=== PATIENT | female | born 1965 | race Caucasian/White ===

== ENCOUNTER 2016-05-15 16:38 | Emergency (ER) | payer OTHER ==
[~2016-05-15] VITALS: Ht 162.6 cm; Wt 102.1 kg
[~2016-05-15 16:38] MED LIST: ANUSOL HC-HEMOR1 SUP RC; LIDOCAINE VISC100 M2 PO; MICROZIDE12.5 MG PO; NEXIUM 40MG40 MG PO; PERCOCET 325 MG1 TA2 PO
[2016-05-15 17:44] LABS: ABSOLUTE BASOPHIL COUNT 0.1 /CUMM (0.0-0.2); ABSOLUTE EOSINOPHIL COUNT 0.1 /CUMM (0.0-0.7); ABSOLUTE GRANULOCYTE CT 6.7 /CUMM (1.4-6.5); ABSOLUTE MONOCYTE COUNT 0.5 /CUMM (0.10-0.60); BASOPHIL % 0.5 % (0.0-2.0); GRANULOCYTE % 64.8 % (42.2-75.2); HEMATOCRIT 29.7 % (37-47); MEAN CORPUSCULAR HGB 18.7 PG (27.0-31.0); MEAN CORPUSCULAR HGB CONC 30.8 G/DL (33.0-37.0); MEAN CORPUSCULAR VOLUME 60.8 FL (81.0-99.0); MEAN PLATELET VOLUME 7.4 FL (7.4-10.4); PLATELET COUNT 413 /CUMM (130-400); RBC DISTRIBUTION WIDTH 20.4 % (11.5-14.5); RED BLOOD CELL CT 4.88 /CUMM (4.20-5.40); WHITE BLOOD CELL COUNT 10.3 /CUMM (4.8-10.8)
[2016-05-15] MEDS ORDERED: LISINOPRIL20 M1 PO (17:53)
[2016-05-15] MEDS ORDERED: VITAMIN B-121000 MC3 PO (17:54)
[2016-05-15] MEDS ORDERED: FOLIC ACID0.8 M1 PO (17:54)
[2016-05-15] MEDS ORDERED: KRILL OIL500 MG PO (17:54)
[2016-05-15] MEDS ORDERED: BIOTIN800 MCG PO (17:55)
--- NOTE | 2016-05-15 18:09 | ED CARDIAC/CP/PALPITATIONS ---
History of Present Illness General Chief Complaint: Chest Pain Stated Complaint: CHEST PAIN Source: patient, family, old records, Epic Exam Limitations: no limitations Vital Signs & Intake/Output Vital Signs & Intake/Output Vital Signs Date Time Temp Pulse Resp B/P Pulse O2 O2 Flow FiO2 Ox Delivery Rate 05/15 1648 98.3 80 16 127/82 98 Room Air Allergies Coded Allergies: amoxicillin (HIVES 05/15/16) carrot (ANAPHYLAXIS 05/15/16) celery (ANAPHYLAXIS 05/15/16) ciprofloxacin (From CIPRO) (RASH 05/15/16) clarithromycin (From BIAXIN) (RAGING HEADACHE 05/15/16) codeine (PALPITATIONS 05/15/16) ibuprofen (ANAPHYLAXIS 05/15/16) ketorolac (From TORADOL) (GIANT MIGRAINE 05/15/16) Reconcile Medications Biotin (Unknown Strength) TABLET (Unknown Dose) PO DAILY SUPPLEMENT (Reported ) Cyanocobalamin (Vitamin B-12) (Unknown Strength) TABLET (Unknown Dose) PO DAILY SUPPLEMENT (Reported) Esomeprazole (Nexium) 40 MG CAPSULE.DR 1 CAP PO DAILY STOMACH (Reported) Folic Acid (Unknown Strength) CAPSULE (Unknown Dose) PO DAILY SUPPLEMENT ( Reported) Hydrochlorothiazide (Microzide) 12.5 MG CAPSULE 1 CAP PO DAILY HTN (Reported) Krill Oil (Unknown Strength) CAPSULE (Unknown Dose) PO DAILY SUPPLEMENT ( Reported) Lisinopril 20 MG TABLET 1 TAB PO DAILY BP (Reported) Triage Note: PT TO TRIAGE WITH C/O CHEST PAIN TAKEN TO EKG [place] AND CLEARED. PT STATES SHE WENT [place] YESTERDAY AND WAS CLEARED STATES HER ENZYMES WHERE NEGATIVE. PT REPORTS ATE MEATLOAF WITH PORK AND VEAL AND BEGAN TO HAVE PAIN. PT STATES SHE IS FEELING LIKE SHE IS GOING TO VOMIT. Triage Nurses Notes Reviewed? yes Onset: Just prior to arrival Duration: minute(s):, constant, continues in ED Timing: recent history Quality/Severity: severe, tightness Location: central, epigastric Radiation: no radiation Activities at Onset: none Prior Chest Pain/Card Workup: echocardiography, stress test Nitro Today/Relief: no nitro taken today Aspirin Today: no aspirin today Associated Symptoms: abdominal pain, diaphoresis, dizziness, nausea/vomiting, weakness LMP (ages 10-50): unknown : No Patient currently breastfeeds: No HPI: Prior to admission patient had repeated episodes of epigastric substernal chest discomfort described as tight moderate to severe associated with nausea and diaphoresis dizziness. She was seen yesterday at [facility] with similar symptoms with normal EKG and 2 negative troponins. She denies fever chills shortness of breath vomiting diarrhea headache dysuria rash bleeding Past History Travel History Traveled to [place] past 21 day No Medical History Any Pertinent Medical History? see below for history Cardiovascular: hypertension Gastrointestinal: GASTRIC BYPASS Surgical History Surgical History: non-contributory Psychosocial History What is your primary language [place]ian Tobacco Use: Quit >30 days ago ETOH Use: occasional use Illicit Drug Use: denies illicit drug use Family History Hx Contributory? No Review of Systems Review of Systems Constitutional: Reports: see HPI, weakness. EENTM: Reports: no symptoms. Respiratory: Reports: no symptoms. Cardiovascular: Reports: see HPI, chest pain. GI: Reports: see HPI, abdominal pain, nausea. Genitourinary: Reports: no symptoms. Musculoskeletal: Reports: no symptoms. Skin: Reports: no symptoms. Neurological/Psychological: Reports: no symptoms. Hematologic/Endocrine: Reports: no symptoms. Immunologic/Allergic: Reports: no symptoms. All Other Systems: Reviewed and Negative Physical Exam Physical Exam General Appearance: well developed/nourished, alert, awake, anxious, moderate distress, obese Head: atraumatic, normal appearance Eyes: Bilateral: normal appearance, PERRL, EOMI. Ears, Nose, Throat: normal pharynx, normal ENT inspection Neck: normal inspection, supple, full range of motion, no midline tenderness Respiratory: normal breath sounds, chest non-tender, no respiratory distress, quiet respiration, lungs clear Cardiovascular: regular rate/rhythm, normal peripheral pulses, norml femoral pulses equa Peripheral Pulses: 4+ carotid (R), 4+ carotid (L) Gastrointestinal: normal bowel sounds, soft, tenderness (epigastric) Back: normal inspection, normal range of motion Extremities: normal inspection, normal capillary refill, normal range of motion, no edema Neurologic/Psych: no motor/sensory deficits, alert, oriented x 3, normal gait, normal mood/affect, 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 Skin: intact, normal color Lymphatic: no anterior cervical fabrice Core Measures ACS in differential dx? No Severe Sepsis Present: No Septic Shock Present: No Progress Differential Diagnosis: AMI, cholecystitis, pancreatitis, PUD/GERD Plan of Care: Orders Procedure Date/time Status URINALYSIS 05/15 1717 Active TROPONIN LEVEL 05/15 1717 Complete LIPASE 05/15 1717 Complete HUMAN BETA HCG SCREEN 05/15 1717 Complete COMPREHENSIVE METABOLIC PANEL 05/15 1717 Complete CBC WITHOUT DIFFERENTIAL 05/15 1717 Complete EKG 05/15 1639 Active Current Medications Sig/Yvonne Start time Last Medication Dose Stop Time Status Admin Metoclopramide HCl 10 MG ONCE ONE 05/15 173 CAN (Reglan) 05/15 173 Laboratory Tests 05/15/16 173: Anion Gap 11, Estimated GFR > 60, BUN/Creatinine Ratio 20.0, Glucose 86, Calcium 8.7, Total Bilirubin 0.2, AST 12 L, ALT 20, Alkaline Phosphatase 60, Troponin I < 0.01, Total Protein 6.8, Albumin 3.8, Globulin 3.0, Albumin/Globulin Ratio 1.3 , Lipase 46, Total Beta HCG NEGATIVE, CBC w Diff NO MAN DIFF REQ, RBC 4.88, MCV 60.8 L, MCH 18.7 L, RDW 20.4 H, MPV 7.4, Gran % 64.8, Lymphocytes % 28.9, Monocytes % 4.8, Eosinophils % 1.0, Basophils % 0.5, Absolute Granulocytes 6.7 H, Absolute Lymphocytes 3.0, Absolute Monocytes 0.5, Absolute Eosinophils 0.1, Absolute Basophils 0.1, PUBS MCHC 30.8 L Diagnostic Imaging: Viewed by Me: CT Scan. Discussed w/RAD: CT Scan. Radiology Impression: 1. Unremarkable gastric bypass and the upper abdomen within the limits of this noncontrast examination. 2. No specific findings to explain right upper quadrant or epigastric pain. 3. Presumed tampon within the vagina. Clinical correlation recommended. 4. 0.4 cm right lower lobe pulmonary nodule. Follow-up as per Fleischner criteria. 5. Top normal to enlarged uterus. Initial ED EKG: normal axis, normal intervals, normal p-waves, normal QRS complex, normal sinus rhythm, no ST T wave changes Prior EKG: unchanged Rhythm Strip: normal sinus rhythm Departure Departure Time of Disposition: 1911 Disposition: HOME OR SELF CARE Condition: Stable Clinical Impression Primary Impression: Biliary colic Referrals: JASMEET MAHAJAN,AARON Santana (PCP/Family) ANTONIA MAHAJAN,SEBASTIÁN Rider Call for surgical follow up or your bypass surgeon Departure Forms: Customer Survey General Discharge Information Prescriptions: Current Visit Scripts Ondansetron (Zofran Odt) 1 TAB SL TID PRN nausea #15 TAB Hyoscyamine Sulfate (Levsin-Sl) 1-2 TAB SL Q4P PRN abdominal pain #30 TAB Tramadol HCl (Ultram) 1-2 TAB PO Q6PRN PRN severe pain #30 TAB Critical Care Note Critical Care Note Critical Care Time: non-applicable
--- NOTE | 2016-05-15 19:02 | CT SCAN REPORT ---
EXAMINATION: CT ABDOMEN AND PELVIS WITHOUT CONTRAST CLINICAL INFORMATION: Weight upper quadrant pain, epigastric pain, nausea, status post gastric bypass COMPARISON: None. TECHNIQUE: Multidetector volumetric imaging was performed from the superior aspect of the liver through the pubic symphysis. Sagittal and coronal reformatted images were obtained on the technologist's workstation. DLP: 1272.6 mGy-cm. FINDINGS: LUNG BASES: There is a pulmonary nodule at the right lung base measuring 0.5 cm (image 88, series 3). The lung bases are otherwise clear. LIVER, GALLBLADDER, AND BILIARY TREE: The liver is normal in size, shape, and attenuation. No focal hepatic lesion or biliary ductal dilatation is present. The gallbladder is unremarkable with no evidence of radiopaque gallstones, gallbladder wall thickening, or obvious pericholecystic inflammatory changes. PANCREAS: Unremarkable. SPLEEN: Unremarkable. ADRENAL GLANDS: Unremarkable. KIDNEYS AND URETERS: The kidneys are normal in size, shape, and attenuation. No hydronephrosis, hydroureter, or calculi seen. No perinephric stranding. BLADDER: Unremarkable. GASTROINTESTINAL TRACT: There is no dilatation of the small or large bowel. The patient is status post gastric bypass surgery. An additional surgical anastomosis is identified at the left upper quadrant. No indirect CT evidence for acute complication. A normal appendix is visualized in the right lower quadrant. There is no free intra-abdominal air or free fluid. ABDOMINAL WALL: No significant hernia is appreciated. LYMPH NODES: Normal. VASCULAR: Unremarkable. PELVIC VISCERA: The uterus and ovaries are unremarkable. The uterus measures 12.7 cm in longest length. There is a mixed attenuation structure within the vagina measuring 4.8 cm. Ovaries are unremarkable. OSSEOUS STRUCTURES: Unremarkable. IMPRESSION: 1. Unremarkable gastric bypass and the upper abdomen within the limits of this noncontrast examination. 2. No specific findings to explain right upper quadrant or epigastric pain. 3. Presumed tampon within the vagina. Clinical correlation recommended. 4. 0.4 cm right lower lobe pulmonary nodule. Follow-up as per Fleischner criteria. 5. Top normal to enlarged uterus. Various management parameters for solitary pulmonary nodules are in the literature. According to the Fleischner Society, recommendations for pulmonary nodules are as follows: Nodule size < or = to 4 mm in LOW RISK PATIENTS: No follow up needed. Nodule size < or = to 4 mm in HIGH RISK PATIENTS: Follow up CT at 12 months; if unchanged, no further follow up. Nodule size > 4-6 mm in LOW RISK PATIENTS: Follow up CT at 12 months; if unchanged, no further follow up. Nodule size > 4-6 mm in HIGH RISK PATIENTS: Initial follow up CT at 6-12 months, then at 18-24 months if no change. Nodule size > 6-8 mm in LOW RISK PATIENTS: Initial follow up CT at 6-12 months, then at 18-24 months if no change. Nodule size > 6-8 mm in HIGH RISK PATIENTS: Initial follow up CT at 3-6 months, then 9-12 months and 24 months if no change. Nodule size > 8 mm in LOW RISK PATIENTS: Follow up CT at around 3, 9, and 24 months, dynamic contrast-enhanced CT, PET, and/or biopsy. Nodule size > 8 mm in HIGH RISK PATIENTS: Same as for low-risk patients.
[2016-05-15] MEDS ORDERED: ZOFRAN ODT4 M1 SL (19:13)
[2016-05-15] MEDS ORDERED: ULTRAM50 M1 PO (19:13)
[2016-05-15] MEDS ORDERED: LEVSIN-SL0.125 MG SL (19:13)
[2016-05-15 19:22] VITALS: BP 97/61
== END 2016-05-15 19:51 ==
LOC: ERH 16:38
PROVIDERS: Emergency Medicine
DX: K80.50 Calculus of bile duct without cholangitis or cholecystitis without obstruction (principal); R07.9 Chest pain, unspecified; I10 Essential (primary) hypertension; Z87.891 Personal history of nicotine dependence
CPT/HCPCS: 74176; 81001; 93005; 93010; 96361; 96374; J2765